=== PATIENT | female | born 1950 | race Caucasian/White ===

== ENCOUNTER 2018-01-04 18:27 | Inpatient (IN) | payer MEDICARE ==
[~2018-01-04] VITALS: Ht 172.7 cm; Wt 89.4 kg
[~2018-01-04 18:27] MED LIST: AMLO5TAB2 PO; ASPI-496 PO; ATOR40TA78 PO; CARV12.52 PO; Carvedilol PO; DOCU-131 PO; FURO-92 PO; ISOS30TA21 PO; LISI2.5T PO; LISI5TAB7 PO; NITR0.4T28 SL; POTA10TA5 PO; TICA90TA PO; WARF-36 PO
[2018-01-04] MEDS ORDERED: ACETAMINOPHEN 500 MG TABLET ONE (21:21)
[2018-01-04] MEDS ORDERED: OXYcodone/APAP 5/325MG TABLET ONE (21:24)
[2018-01-04] MEDS ORDERED: ONDANSETRON ODT 4 MG ONE (21:24)
[2018-01-04] MEDS ORDERED: OXYcodone/APAP 5/325MG TABLET PO ONE (21:30)
[2018-01-04] MEDS ORDERED: ACETAMINOPHEN 500 MG TABLET PO ONE (21:30)
[2018-01-04] MEDS ORDERED: ONDANSETRON ODT 4 MG PO ONE (21:30)
[2018-01-04] MEDS ORDERED: CARVEDILOL 12.5 MG TABLET PO ONE (23:30)
[2018-01-04] MEDS ORDERED: HYDR12.58 PO (23:41)
[2018-01-04] MEDS: SODIUM CHLORIDE FLUSH 10ML SYR IVF SCH (23:56)
[2018-01-05] MEDS ORDERED: ONDANSETRON 2MG/ML, 2ML IVPush PRN
[2018-01-05] MEDS ORDERED: BISACODYL 10 MG SUPP PR PRN
[2018-01-05] MEDS ORDERED: ACETAMINOPHEN 325 MG TABLET PO PRN
[2018-01-05] MEDS ORDERED: DOCUSATE 100 MG CAPSULE PO SCH
[2018-01-05] MEDS ORDERED: POLYETHYLENE GLYCOL 17 GM PACKET PO PRN
[2018-01-05 00:20] LABS: INTERNATIONAL NORMALIZED RATIO 1.03 (0.93-1.1); PROTHROMBIN TIME 10.7 Seconds (9.6-11.5)
[2018-01-05 00:59] VITALS: BP 93/53
[2018-01-05] MEDS ORDERED: CARVEDILOL 25 MG TABLET ONE (01:47)
[2018-01-05] MEDS: LISINOPRIL 5 MG TABLET PO SCH ×4 (01:50→20:57)
[2018-01-05] MEDS: WARFARIN 5 MG TABLET PO-COUM SCH ×2 (01:50→20:58)
[2018-01-05] MEDS: ATORVASTATIN 40 MG TABLET PO SCH ×5 (01:50→20:58)
[2018-01-05] MEDS: POTASSIUM CHLORIDE 10 MEQ TABLET.ER PO SCH ×3 (01:53→20:57)
[2018-01-05] MEDS: OXYcodone/APAP 5/325MG TABLET PO PRN ×3 (02:11→23:35)
[2018-01-05 05:11] VITALS: BP 156/84
[2018-01-05] MEDS: CARVEDILOL 6.25 MG TABLET PO SCH ×2 (05:27→18:08)
[2018-01-05] MEDS: SENNA/DOCUSATE TABLET PO SCH (08:36)
[2018-01-05] MEDS: AMLODIPINE 5 MG TABLET PO SCH (08:37)
[2018-01-05] MEDS: ASPIRIN 81 MG TABLET EC PO SCH (08:37)
[2018-01-05] MEDS: HYDROCHLOROTHIAZIDE 12.5 MG CAPSULE PO SCH (08:37)
[2018-01-05] MEDS: FUROSEMIDE 40 MG TABLET PO SCH (08:38)
[2018-01-05 08:40] VITALS: BP 133/65
[2018-01-05] MEDS: SODIUM CHLORIDE FLUSH 10ML SYR IVF SCH ×3 (08:40→20:58)
[2018-01-05 15:14] VITALS: BP 97/61
[2018-01-05 19:56] VITALS: BP 97/52
[2018-01-06 03:05] VITALS: BP 107/64
[2018-01-06] MEDS: CARVEDILOL 6.25 MG TABLET PO SCH (06:08)
[2018-01-06 07:38] VITALS: BP 109/43
[2018-01-06] MEDS: ATORVASTATIN 40 MG TABLET PO SCH (08:21)
[2018-01-06] MEDS: ASPIRIN 81 MG TABLET EC PO SCH (08:21)
[2018-01-06] MEDS: SENNA/DOCUSATE TABLET PO SCH (08:21)
[2018-01-06] MEDS: SODIUM CHLORIDE FLUSH 10ML SYR IVF SCH (08:22)
[2018-01-06] MEDS: FUROSEMIDE 40 MG TABLET PO SCH (09:17)
[2018-01-06] MEDS: LISINOPRIL 5 MG TABLET PO SCH (09:17)
[2018-01-06] MEDS: POTASSIUM CHLORIDE 10 MEQ TABLET.ER PO SCH (09:17)
[2018-01-06] MEDS: HYDROCHLOROTHIAZIDE 12.5 MG CAPSULE PO SCH (09:17)
[2018-01-06] MEDS: AMLODIPINE 5 MG TABLET PO SCH (09:17)
[2018-01-06 13:31] VITALS: BP 120/64
[2018-01-06] MEDS: OXYcodone/APAP 5/325MG TABLET PO PRN (13:38)
== END 2018-01-06 14:10 | DRG 563 ==
LOC: ED 23:59 → EDIP 01-05 → 4NOR 01-05 00:20
PROVIDERS: ADMIT Internal Medicine; ATTEND Internal Medicine
PROC: 2W38X1Z Immobilization of Right Upper Extremity using Splint (ICD-10-PCS; principal; 2018-01-05)
PROC: 2W3LX1Z Immobilization of Right Lower Extremity using Splint (ICD-10-PCS; 2018-01-05)
DX: S52.121A Displaced fracture of head of right radius, initial encounter for closed fracture (principal); I11.0 Hypertensive heart disease with heart failure; I50.9 Heart failure, unspecified; W01.0XXA Fall on same level from slipping, tripping and stumbling without subsequent striking against object, initial encounter; S52.122A Displaced fracture of head of left radius, initial encounter for closed fracture; E78.5 Hyperlipidemia, unspecified; I25.2 Old myocardial infarction; M17.12 Unilateral primary osteoarthritis, left knee; I25.10 Atherosclerotic heart disease of native coronary artery without angina pectoris; S00.81XA Abrasion of other part of head, initial encounter; Z60.2 Problems related to living alone; S80.212A Abrasion, left knee, initial encounter; Z66 Do not resuscitate; Y93.89 Activity, other specified; Y92.89 Other specified places as the place of occurrence of the external cause; Y99.8 Other external cause status; Z86.73 Personal history of transient ischemic attack (TIA), and cerebral infarction without residual deficits; Z87.891 Personal history of nicotine dependence; Z72.89 Other problems related to lifestyle; Z95.2 Presence of prosthetic heart valve; Z95.5 Presence of coronary angioplasty implant and graft; Z90.89 Acquired absence of other organs; Z88.5 Allergy status to narcotic agent
CPT/HCPCS: 29105; 36415; 70450; 85610; 99285; Q0162